=== PATIENT | female | born 1985 | race Caucasian/White ===

== ENCOUNTER 2017-10-16 13:11 | Emergency (ER) | payer MEDICAID ==
[~2017-10-16] VITALS: Ht 165.1 cm; Wt 57.0 kg
[~2017-10-16 13:11] MED LIST: NO HOME MEDS
[2017-10-16] MEDS ORDERED: vancomycin/NS 1 GM ADD-VANTAGE 250 ML IV ONE (14:00)
[2017-10-16] MEDS ORDERED: piperacillin/tazo 3.375gm/50ml 50 ML IV ONE (14:00)
[2017-10-16] MEDS ORDERED: normal saline 1000ML IV soln IV ONE (14:00)
[2017-10-16 14:53] LABS: BASOPHILS % (AUTO) 0.5 % (0-1); EOSINOPHILS # (AUTO) 0.3 X10'3 (0-0.9); EOSINOPHILS % (AUTO) 4.1 % (0-6); HEMATOCRIT 28.1 % (35.0-45.0); HEMOGLOBIN 9.3 g/dl (12.0-16.0); LYMPHOCYTES # (AUTO) 2.1 X10'3 (1.1-4.8); LYMPHOCYTES % (AUTO) 25.9 % (21-51); MEAN CORPUSCULAR HEMOGLOBIN 26.1 PG (27.0-31.0); MEAN CORPUSCULAR HGB CONC 32.9 % (33.0-36.5); MEAN CORPUSCULAR VOLUME 79.2 FL (78-98); MEAN PLATELET VOLUME 8.4 FL (7.4-10.4); MONOCYTES # (AUTO) 0.6 X10'3 (0-0.9); MONOCYTES % (AUTO) 7.8 % (2-12); NEUTROPHILS % (AUTO) 61.7 % (42-75); PLATELET COUNT 311 X10'3 (140-440); RED BLOOD COUNT 3.55 X10'6 (4.20-5.60); RED CELL DISTRIBUTION WIDTH 15.6 % (11.5-14.5); WHITE BLOOD COUNT 8.1 X10'3 (4.5-11.0)
[2017-10-16 14:58] LABS: ALANINE AMINOTRANSFERASE 39 U/L (12-78); ALBUMIN 2.5 G/DL (3.4-5.0); ALBUMIN/GLOBULIN RATIO 0.6 (1.1-1.5); ALKALINE PHOSPHATASE 71 IU/L (46-116); ANION GAP 9 (8-16); ASPARTATE AMINO TRANSFERASE 30 U/L (10-37); BILIRUBIN,TOTAL 0.2 MG/DL (0.1-1.0); BLOOD UREA NITROGEN 10 MG/DL (7-18); BUN/CREATININE RATIO 14.3 (6.6-38.0); CALCIUM 7.4 MG/DL (8.5-10.1); CHLORIDE 105 MMOL/L (99-107); ETHANOL < 0.010 GM/DL (0.0-0.010); MAGNESIUM 1.8 MG/DL (1.5-2.4); POTASSIUM 3.3 MMOL/L (3.5-5.1); SODIUM 141 MMOL/L (135-145); TOTAL CARBON DIOXIDE 27.5 MMOL/L (24-32); TOTAL PROTEIN 6.5 G/DL (6.4-8.2); eGFR > 90 ML/MIN
[2017-10-16 14:59] LABS: GLUCOSE 81 MG/DL (70-104)
[2017-10-16 15:00] LABS: URINE HCG NEGATIVE (NEG)
[2017-10-16] MEDS ORDERED: iohexol 300mg/ml 100ml inj. ONE (15:04)
[2017-10-16 15:06] LABS: CLARITY,URINE CLOUDY (Clear); COLOR,URINE YELLOW (Yellow); GLUCOSE, URINE NEGATIVE (Neg); KETONES,URINE NEGATIVE (Neg); LEUKOCYTE ESTERASE ,URINE SMALL (Neg); NITRITES, URINE POSITIVE (Neg); OCCULT BLOOD,URINE NEGATIVE (Neg); PROTEIN,URINE TRACE mg/dl (Neg); UA COLLECTION TYPE CLN CATCH MIDSTREAM; UROBILINOGEN,URINE 0.2 E.U/dL (0.2-1.0)
[2017-10-16 15:15] LABS: URINE AMPHETAMINE SCREEN POSITIVE (Neg); URINE BARBITUATE SCREEN NEGATIVE (Neg); URINE BENZODIAZEPINES SCREEN NEGATIVE (Neg); URINE CANNABINOID SCREEN NEGATIVE (Neg); URINE COCAINE SCREEN NEGATIVE (Neg); URINE METHADONE SCREEN NEGATIVE (Neg); URINE OPIATE SCREEN POSITIVE (Neg); URINE PHENCYCLIDINE SCREEN NEGATIVE (Neg)
[2017-10-16 15:17] LABS: BACTERIA,URINE 4+ /HPF (Neg); MUCUS STRANDS MANY /LPF (Neg); RBC,URINE 0-2 /HPF (0-2); SQUAMOUS EPITHELIAL CELL,UR FEW /LPF (FEW)
[2017-10-16 21:29] VITALS: BP 114/56
== END 2017-10-16 18:49 | disposition short-term general hospital (02) ==
LOC: ER 13:12
DX: S06.0X0A Concussion without loss of consciousness, initial encounter (principal); S05.12XA Contusion of eyeball and orbital tissues, left eye, initial encounter; F15.10 Other stimulant abuse, uncomplicated; N39.0 Urinary tract infection, site not specified; D64.9 Anemia, unspecified; G89.29 Other chronic pain; F11.90 Opioid use, unspecified, uncomplicated; Z56.0 Unemployment, unspecified; W22.8XXA Striking against or struck by other objects, initial encounter; Y93.89 Activity, other specified; Y92.89 Other specified places as the place of occurrence of the external cause; Y99.8 Other external cause status
CPT/HCPCS: 36415; 70450; 80053; 80305; 80320; 81001; 81025; 83605; 83735; 84145; 85025; 87040; 87088; 96365; 96366; 96367; 99285; J2543; J3370; J7030; Q9967; 87077; 87186

== ENCOUNTER 2018-03-21 20:03 | Emergency (ER) | payer MEDICAID ==
[~2018-03-21] VITALS: Ht 165.1 cm; Wt 56.0 kg
[2018-03-21 20:33] LABS: BASOPHILS % (AUTO) 0.4 % (0-1); EOSINOPHILS # (AUTO) 0.4 X10'3 (0-0.9); EOSINOPHILS % (AUTO) 6.8 % (0-6); HEMATOCRIT 34.2 % (35.0-45.0); HEMOGLOBIN 11.1 g/dl (12.0-16.0); LYMPHOCYTES # (AUTO) 2.2 X10'3 (1.1-4.8); LYMPHOCYTES % (AUTO) 34.5 % (21-51); MEAN CORPUSCULAR HEMOGLOBIN 25.7 PG (27.0-31.0); MEAN CORPUSCULAR HGB CONC 32.4 % (33.0-36.5); MEAN CORPUSCULAR VOLUME 79.2 FL (78-98); MEAN PLATELET VOLUME 8.5 FL (7.4-10.4); MONOCYTES # (AUTO) 0.4 X10'3 (0-0.9); MONOCYTES % (AUTO) 5.8 % (2-12); NEUTROPHILS # (AUTO) 3.3 X10'3 (1.8-7.7); NEUTROPHILS % (AUTO) 52.5 % (42-75); PLATELET COUNT 259 X10'3 (140-440); RED BLOOD COUNT 4.32 X10'6 (4.20-5.60); WHITE BLOOD COUNT 6.3 X10'3 (4.5-11.0)
[2018-03-21 20:47] LABS: ALANINE AMINOTRANSFERASE 57 U/L (12-78); ALBUMIN 3.5 G/DL (3.4-5.0); ALBUMIN/GLOBULIN RATIO 0.8 (1.1-1.5); ALKALINE PHOSPHATASE 102 IU/L (46-116); ANION GAP 5 (8-16); ASPARTATE AMINO TRANSFERASE 39 U/L (10-37); BILIRUBIN,TOTAL 0.3 MG/DL (0.1-1.0); BLOOD UREA NITROGEN 12 MG/DL (7-18); CALCIUM 9.4 MG/DL (8.5-10.1); CHLORIDE 100 MMOL/L (99-107); CREATININE 0.86 MG/DL (0.40-0.90); POTASSIUM 4.2 MMOL/L (3.5-5.1); SODIUM 140 MMOL/L (135-145); TOTAL CARBON DIOXIDE 35.1 MMOL/L (24-32); eGFR 76 ML/MIN
[2018-03-21 20:55] LABS: GLUCOSE 85 MG/DL (70-104)
[2018-03-21 21:32] LABS: CLARITY,URINE SLIGHTLY CLOUDY (Clear); COLOR,URINE YELLOW (Yellow); GLUCOSE, URINE NEGATIVE (Neg); KETONES,URINE NEGATIVE (Neg); LEUKOCYTE ESTERASE ,URINE SMALL (Neg); NITRITES, URINE NEGATIVE (Neg); OCCULT BLOOD,URINE NEGATIVE (Neg); PH,URINE 7.5 (4.8-8.0); PROTEIN,URINE TRACE mg/dl (Neg); UROBILINOGEN,URINE 0.2 E.U/dL (0.2-1.0)
[2018-03-21 21:32] LABS: INR 0.9 INR; PROTHROMBIN TIME 9.5 SECONDS (9.0-12.0)
[2018-03-21 21:34] LABS: URINE HCG NEGATIVE (NEG)
[2018-03-21 21:41] LABS: UA COLLECTION TYPE CLN CATCH MIDSTREAM
[2018-03-21 21:42] LABS: BACTERIA,URINE 2+ /HPF (Neg); RBC,URINE 0-2 /HPF (0-2); SQUAMOUS EPITHELIAL CELL,UR MODERATE /LPF (FEW); WBC,URINE 30-50 /HPF (0-4)
[2018-03-21] MEDS ORDERED: CEPH500C5 PO (21:49)
[2018-03-21] MEDS ORDERED: cephalexin 250mg capsule PO ONE (21:50)
[2018-03-21 22:09] VITALS: BP 139/91
== END 2018-03-21 22:12 | disposition home or self-care (01) ==
LOC: ER 20:03
DX: N39.0 Urinary tract infection, site not specified (principal); R11.10 Vomiting, unspecified; F11.20 Opioid dependence, uncomplicated; R10.84 Generalized abdominal pain; G89.29 Other chronic pain; F15.90 Other stimulant use, unspecified, uncomplicated; M79.7 Fibromyalgia; Z56.0 Unemployment, unspecified; Z98.890 Other specified postprocedural states
CPT/HCPCS: 36415; 80053; 81001; 81025; 85025; 85610; 87077; 87088; 87186; 99283

== ENCOUNTER 2018-04-23 13:10 | Emergency (ER) | payer MEDICAID, OTHER ==
[~2018-04-23] VITALS: Ht 165.1 cm; Wt 54.5 kg
[~2018-04-23 13:10] MED LIST changes: +CEPH500C5 PO
[2018-04-23 13:45] VITALS: BP 122/95
[2018-04-23] MEDS ORDERED: CEPH-572 PO (15:46)
[2018-04-23] MEDS ORDERED: SULF1TAB49 PO (15:46)
== END 2018-04-23 16:00 | disposition home or self-care (01) ==
LOC: ER 13:10
DX: L03.114 Cellulitis of left upper limb (principal); G89.29 Other chronic pain; M79.7 Fibromyalgia; F17.200 Nicotine dependence, unspecified, uncomplicated; F15.10 Other stimulant abuse, uncomplicated; F11.10 Opioid abuse, uncomplicated; Z56.0 Unemployment, unspecified; Z79.899 Other long term (current) drug therapy
CPT/HCPCS: 99284

== ENCOUNTER 2018-04-23 20:21 | Emergency (ER) | payer OTHER ==
[~2018-04-23 20:21] MED LIST changes: +CEPH-572 PO; +SULF1TAB49 PO
== END 2018-04-23 21:21 | disposition left against medical advice (07) ==
LOC: ER 20:21
DX: R21 Rash and other nonspecific skin eruption (principal); Z53.21 Procedure and treatment not carried out due to patient leaving prior to being seen by health care provider

== ENCOUNTER 2019-03-08 13:48 | Emergency (ER) | payer MEDICAID, OTHER ==
[~2019-03-08] VITALS: Ht 165.1 cm; Wt 56.0 kg
[~2019-03-08 13:48] MED LIST changes: -CEPH-572 PO; -SULF1TAB49 PO
[2019-03-08 13:49] VITALS: BP 129/73
[2019-03-08] MEDS ORDERED: IBUP-1984 PO (15:57)
[2019-03-08] MEDS ORDERED: BACDS PO (15:57)
== END 2019-03-08 16:07 | disposition home or self-care (01) ==
LOC: ER 13:49
DX: L03.113 Cellulitis of right upper limb (principal); G89.29 Other chronic pain; M79.7 Fibromyalgia; F15.90 Other stimulant use, unspecified, uncomplicated; F11.90 Opioid use, unspecified, uncomplicated; Z79.2 Long term (current) use of antibiotics; Z79.1 Long term (current) use of non-steroidal anti-inflammatories (NSAID); Z98.890 Other specified postprocedural states; Z56.0 Unemployment, unspecified
CPT/HCPCS: 99283

== ENCOUNTER 2021-02-13 06:02 | Emergency (ER) | payer MEDICAID ==
[~2021-02-13] VITALS: Ht 165.1 cm; Wt 61.0 kg
[~2021-02-13 06:02] MED LIST changes: -CEPH500C5 PO
[2021-02-13 06:18] VITALS: BP 101/66
[2021-02-13 07:39] LABS: URINE HCG NEGATIVE (NEG)
[2021-02-13 07:55] LABS: CLARITY,URINE CLOUDY (Clear); COLOR,URINE YELLOW (Yellow); GLUCOSE, URINE NEGATIVE (Neg); KETONES,URINE NEGATIVE (Neg); OCCULT BLOOD,URINE MODERATE (Neg); PH,URINE 7.5 (4.8-8.0); PROTEIN,URINE NEGATIVE (Neg); UA COLLECTION TYPE OTHER
[2021-02-13 07:56] LABS: LEUKOCYTE ESTERASE ,URINE SMALL (Neg); NITRITES, URINE NEGATIVE (Neg); UROBILINOGEN,URINE 0.2 E.U/dL (0.2-1.0)
[2021-02-13 08:16] LABS: BACTERIA,URINE 4+ /HPF (Neg); SQUAMOUS EPITHELIAL CELL,UR MANY /LPF (FEW)
[2021-02-13 08:17] LABS: TRICHOMONAS,URINE MANY /HPF (NEGATIVE)
[2021-02-13 08:18] LABS: RBC,URINE 0-2 /HPF (0-2)
--- NOTE | 2021-02-13 08:19 | NUR ---
PT DIFFICULT IV START, 2 ATTEMPTS AND WITHOUT LABS OR IV. REPORTED TO FRENCH DRAWER WHOM WILL ATTEMPT AND WILL INFORM MD.
--- NOTE | 2021-02-13 08:30 | NUR ---
UPDATED ON PT IV ACCESS STATUS, VO TO HAVE PICC RN PAGED FOR ULTRASOUND IV PLACEMENT.
[2021-02-13 08:48] LABS: BASOPHILS % (AUTO) 0.3 % (0-1); EOSINOPHILS # (AUTO) 0.1 X10'3 (0-0.9); EOSINOPHILS % (AUTO) 1.1 % (0-6); HEMOGLOBIN 11.2 g/dl (12.0-16.0); LYMPHOCYTES # (AUTO) 1.7 X10'3 (1.1-4.8); LYMPHOCYTES % (AUTO) 22.7 % (21-51); MEAN CORPUSCULAR HEMOGLOBIN 25.3 PG (27.0-31.0); MEAN CORPUSCULAR HGB CONC 33.1 g/dL (33.0-36.5); MEAN CORPUSCULAR VOLUME 76.6 FL (78-98); MEAN PLATELET VOLUME 8.2 FL (7.4-10.4); MONOCYTES # (AUTO) 0.3 X10'3 (0-0.9); MONOCYTES % (AUTO) 4.1 % (2-12); NEUTROPHILS # (AUTO) 5.2 X10'3 (1.8-7.7); NEUTROPHILS % (AUTO) 71.8 % (42-75); PLATELET COUNT 331 X10'3 (140-440); RED BLOOD COUNT 4.44 X10'6 (4.20-5.60); RED CELL DISTRIBUTION WIDTH 14.5 % (11.5-14.5); WHITE BLOOD COUNT 7.3 X10'3 (4.5-11.0)
[2021-02-13 08:59] LABS: D-DIMER 2.79 MG/L FEU (0-0.50)
[2021-02-13 09:06] LABS: ALANINE AMINOTRANSFERASE 30 U/L (12-78); ALBUMIN 3.1 G/DL (3.4-5.0); ALBUMIN/GLOBULIN RATIO 0.5 (1.1-1.5); ALKALINE PHOSPHATASE 97 IU/L (46-116); ANION GAP 10 (8-16); ASPARTATE AMINO TRANSFERASE 23 U/L (10-37); BILIRUBIN,TOTAL 0.4 MG/DL (0.1-1.0); BLOOD UREA NITROGEN 10 MG/DL (7-18); BUN/CREATININE RATIO 12.3 (6.6-38.0); C-REACTIVE PROTEIN 4.36 MG/DL (0.0-0.5); CALCIUM 9.5 MG/DL (8.5-10.1); CHLORIDE 104 MMOL/L (99-107); CREATININE 0.81 MG/DL (0.40-0.90); MAGNESIUM 2.4 MG/DL (1.5-2.4); POTASSIUM 4.2 MMOL/L (3.5-5.1); SODIUM 139 MMOL/L (135-145); TOTAL CARBON DIOXIDE 25.5 MMOL/L (24-32); TOTAL PROTEIN 9.2 G/DL (6.4-8.2); eGFR 80 ML/MIN
[2021-02-13 09:10] LABS: GLUCOSE 104 MG/DL (70-104)
[2021-02-13] MEDS ORDERED: CefTRIAXone 250MG inj IM ONE (10:20)
[2021-02-13] MEDS ORDERED: DOXY-411 PO (10:22)
[2021-02-13] MEDS ORDERED: DOXYCYCLINE 100MG CAPSULE PO STA (10:22)
[2021-02-13] MEDS ORDERED: naproxen 500mg tablet PO ONE (10:25)
[2021-02-13] MEDS ORDERED: CefTRIAXone 1000mg IM Kit (w/lidocaine diluent) IM ONE (10:25)
== END 2021-02-13 10:53 | disposition left against medical advice (07) ==
LOC: ER 06:02
DX: N10 Acute pyelonephritis (principal); F15.10 Other stimulant abuse, uncomplicated; R01.1 Cardiac murmur, unspecified
CPT/HCPCS: 36415; 71045; 80053; 81001; 81025; 83605; 83735; 84145; 85025; 85379; 85651; 86140; 87040; 96372; 99284; J0696

== ENCOUNTER 2021-03-30 13:59 | Inpatient (IN) | payer MEDICAID ==
[~2021-03-30] VITALS: Ht 165.1 cm; Wt 57.7 kg
[2021-03-30 14:41] LABS: URINE HCG NEGATIVE (NEG)
[2021-03-30 14:43] LABS: BASOPHILS % (AUTO) 0.2 % (0-1); EOSINOPHILS % (AUTO) 0.1 % (0-6); HEMATOCRIT 34.1 % (35.0-45.0); LYMPHOCYTES # (AUTO) 1.4 X10'3 (1.1-4.8); LYMPHOCYTES % (AUTO) 8.5 % (21-51); MEAN CORPUSCULAR HEMOGLOBIN 23.9 PG (27.0-31.0); MEAN CORPUSCULAR HGB CONC 32.1 g/dL (33.0-36.5); MEAN CORPUSCULAR VOLUME 74.4 FL (78-98); MEAN PLATELET VOLUME 8.3 FL (7.4-10.4); MONOCYTES # (AUTO) 1.4 X10'3 (0-0.9); MONOCYTES % (AUTO) 8.3 % (2-12); NEUTROPHILS # (AUTO) 13.9 X10'3 (1.8-7.7); NEUTROPHILS % (AUTO) 82.9 % (42-75); PLATELET COUNT 292 X10'3 (140-440); RED BLOOD COUNT 4.59 X10'6 (4.20-5.60); RED CELL DISTRIBUTION WIDTH 14.7 % (11.5-14.5); WHITE BLOOD COUNT 16.7 X10'3 (4.5-11.0)
[2021-03-30 14:44] LABS: CLARITY,URINE CLOUDY (Clear); COLOR,URINE YELLOW (Yellow); GLUCOSE, URINE NEGATIVE (Neg); KETONES,URINE TRACE mg/dl (Neg); LEUKOCYTE ESTERASE ,URINE LARGE (Neg); NITRITES, URINE NEGATIVE (Neg); OCCULT BLOOD,URINE SMALL (Neg); PROTEIN,URINE 100 mg/dl (Neg)
[2021-03-30 14:45] LABS: UA COLLECTION TYPE CLN CATCH MIDSTREAM
[2021-03-30 14:54] LABS: ALANINE AMINOTRANSFERASE 30 U/L (12-78); ALBUMIN 3.2 G/DL (3.4-5.0); ALBUMIN/GLOBULIN RATIO 0.5 (1.1-1.5); ALKALINE PHOSPHATASE 130 IU/L (46-116); ANION GAP 12 (8-16); ASPARTATE AMINO TRANSFERASE 25 U/L (10-37); BILIRUBIN,TOTAL 0.6 MG/DL (0.1-1.0); BLOOD UREA NITROGEN 13 MG/DL (7-18); BUN/CREATININE RATIO 12.3 (6.6-38.0); CALCIUM 9.5 MG/DL (8.5-10.1); CHLORIDE 97 MMOL/L (99-107); CREATININE 1.06 MG/DL (0.40-0.90); GLUCOSE 108 MG/DL (70-104); LIPASE < 50 U/L (73-393); POTASSIUM 4.6 MMOL/L (3.5-5.1); SODIUM 137 MMOL/L (135-145); TOTAL CARBON DIOXIDE 27.6 MMOL/L (24-32); TOTAL PROTEIN 9.6 G/DL (6.4-8.2); eGFR 59 ML/MIN
[2021-03-30 15:08] LABS: BACTERIA,URINE 4+ /HPF (Neg); SQUAMOUS EPITHELIAL CELL,UR MANY /LPF (FEW); WBC,URINE TNTC /HPF (0-4)
[2021-03-30 15:09] LABS: RBC,URINE 0-2 /HPF (0-2); WBC CLUMPS,URINE MANY /HPF (NEGATIVE)
[2021-03-30 15:14] LABS: TRICHOMONAS,URINE FEW /HPF (NEGATIVE)
[2021-03-30] MEDS ORDERED: normal saline 1000ML IV soln IVB ONE (16:30)
[2021-03-30] MEDS ORDERED: ondansetron/PF 4mg/2ml inj IV ONE (16:30)
[2021-03-30] MEDS ORDERED: ketorolac trometh. 30mg/ml inj. IV ONE (16:30)
[2021-03-30] MEDS ORDERED: CefTRIAXone 2gm/D5W 50ml BAG 50 ML IV ONE (16:35)
[2021-03-30] MEDS ORDERED: iohexol 300mg/ml 100ml inj. ONE (16:43)
[2021-03-30 20:19] LABS: URINE BARBITUATE SCREEN NEGATIVE (Neg); URINE BENZODIAZEPINES SCREEN NEGATIVE (Neg); URINE METHADONE SCREEN NEGATIVE (Neg)
[2021-03-30] MEDS ORDERED: morphine 4 MG/ML inj SYRINge IV ONE (20:20)
[2021-03-30 20:42] LABS: URINE AMPHETAMINE SCREEN POSITIVE (Neg); URINE CANNABINOID SCREEN NEGATIVE (Neg); URINE COCAINE SCREEN NEGATIVE (Neg); URINE OPIATE SCREEN POSITIVE (Neg); URINE PHENCYCLIDINE SCREEN NEGATIVE (Neg)
[2021-03-30] MEDS ORDERED: vancomycin/NS 1 GM ADD-VANTAGE 250 ML IV ONE (20:50)
[2021-03-30] MEDS ORDERED: normal saline 1000ML IV soln IV ONE (20:50)
[2021-03-30] MEDS ORDERED: temazepam 15mg capsule PO PRN (21:00)
[2021-03-30] MEDS ORDERED: magnesium 4gm in 100ml NS 100 ML IV PRN (21:10)
[2021-03-30] MEDS ORDERED: magnesium Cl slow-release 64mg tablet PO PRN (21:10)
[2021-03-30] MEDS ORDERED: magnesium 2GM in 50ml NS 50 ML IV PRN (21:10)
[2021-03-30] MEDS ORDERED: ondansetron/PF 4mg/2ml inj IV PRN (21:10)
[2021-03-30] MEDS ORDERED: potassium Cl 20 mEq SR tablet PO PRN ×2 (21:10)
[2021-03-30] MEDS: normal saline 1000ml 1,000 ML IV SCH (21:10)
[2021-03-30] MEDS ORDERED: potassium CL 10mEq/100ml bag 100 ML IV PRN (21:10)
[2021-03-30] MEDS ORDERED: acetaminophen 325mg tablet PO PRN (21:10)
[2021-03-30 22:57] LABS: MAGNESIUM 2.1 MG/DL (1.5-2.4); POTASSIUM 3.8 MMOL/L (3.5-5.1)
[2021-03-31] MEDS: morphine 2 MG/ML inj. syringe IV PRN ×4 (00:06→19:30)
[2021-03-31 00:42] LABS: ALBUMIN 2.1 G/DL (3.4-5.0); ANION GAP 5 (8-16); BLOOD UREA NITROGEN 18 MG/DL (7-18); BUN/CREATININE RATIO 18.9 (6.6-38.0); CALCIUM 7.8 MG/DL (8.5-10.1); CHLORIDE 103 MMOL/L (99-107); CREATININE 0.95 MG/DL (0.40-0.90); MAGNESIUM 1.7 MG/DL (1.5-2.4); POTASSIUM 3.9 MMOL/L (3.5-5.1); SODIUM 137 MMOL/L (135-145); TOTAL CARBON DIOXIDE 28.8 MMOL/L (24-32); eGFR 67 ML/MIN
[2021-03-31 00:43] LABS: GLUCOSE 107 MG/DL (70-104)
[2021-03-31 01:21] LABS: BASOPHILS % (AUTO) 0.3 % (0-1); EOSINOPHILS # (AUTO) 0.1 X10'3 (0-0.9); EOSINOPHILS % (AUTO) 0.9 % (0-6); HEMATOCRIT 25.8 % (35.0-45.0); HEMOGLOBIN 8.5 g/dl (12.0-16.0); LYMPHOCYTES # (AUTO) 1.1 X10'3 (1.1-4.8); LYMPHOCYTES % (AUTO) 10.9 % (21-51); MEAN CORPUSCULAR HEMOGLOBIN 24.5 PG (27.0-31.0); MEAN CORPUSCULAR HGB CONC 32.8 g/dL (33.0-36.5); MEAN CORPUSCULAR VOLUME 74.6 FL (78-98); MEAN PLATELET VOLUME 8.6 FL (7.4-10.4); MONOCYTES % (AUTO) 9.5 % (2-12); NEUTROPHILS % (AUTO) 78.4 % (42-75); PLATELET COUNT 171 X10'3 (140-440); RED BLOOD COUNT 3.46 X10'6 (4.20-5.60); RED CELL DISTRIBUTION WIDTH 14.8 % (11.5-14.5); WHITE BLOOD COUNT 10.2 X10'3 (4.5-11.0)
[2021-03-31 02:30] VITALS: BP 98/46
--- NOTE | 2021-03-31 02:30 | NUR ---
Charge MASOUD Mascorro got report on this patient. Came up on the floor 0230.
[2021-03-31] MEDS: HYDROcodone/acetaminophen 5mg/325mg tablet PO PRN (03:44)
[2021-03-31 06:00] VITALS: BP 101/51
--- NOTE | 2021-03-31 06:40 | NUR ---
Problems reprioritized. Patient report given, questions answered & plan of care reviewed with MASOUD Gan.
[2021-03-31] MEDS: normal saline 1000ml 1,000 ML IV SCH ×3 (07:57→19:36)
[2021-03-31] MEDS: K and/or MAG REPLACEMENT MC SCH ×2 (07:57→19:20)
[2021-03-31] MEDS: vancomycin/NS 1 GM ADD-VANTAGE 250 ML IV SCH ×2 (08:05→22:54)
[2021-03-31 11:00] VITALS: BP 111/68
[2021-03-31 15:00] VITALS: BP 131/77
[2021-03-31] MEDS: CefTRIAXone/D5W-Rocephin 1gm 50 ML IV SCH (16:00)
[2021-03-31 18:00] VITALS: BP 108/69
[2021-03-31] MEDS: lactobacillus rhamnosus 10,000 MMU CELLS/CAPSULE PO SCH (19:31)
[2021-03-31 22:00] VITALS: BP 127/81
[2021-04-01 02:00] VITALS: BP 107/61
--- NOTE | 2021-04-01 06:27 | NUR ---
Patient in room PCU 3020. I have received report from MASOUD Ivory and had the opportunity to ask questions and assume patient care.
[2021-04-01 06:44] VITALS: BP 106/69
[2021-04-01] MEDS: morphine 2 MG/ML inj. syringe IV PRN ×3 (06:50→16:54)
[2021-04-01] MEDS: K and/or MAG REPLACEMENT MC SCH (08:00)
[2021-04-01] MEDS ORDERED: VANCOMYCIN LEVEL IV ONE ×2 (08:30→20:30)
[2021-04-01] MEDS: vancomycin/NS 1 GM ADD-VANTAGE 250 ML IV SCH (08:58)
[2021-04-01] MEDS: lactobacillus rhamnosus 10,000 MMU CELLS/CAPSULE PO SCH (08:58)
[2021-04-01] MEDS: HYDROcodone/acetaminophen 5mg/325mg tablet PO PRN (09:02)
--- NOTE | 2021-04-01 09:39 | NUR ---
PAGER ID: [phone] MESSAGE: [phone]- Ann Gay- tearful and shaking knees. asking about detox. states the 0.5mg morphine q4hr isn't helping and getting "antsy" doesn't think she will be able to stay for long. Thank you- Jennifer [phone].
--- NOTE | 2021-04-01 09:40 | NUR ---
PAGER ID: [phone] MESSAGE: [phone]- Ann Gay- correction she is getting 1mg morphine not 0.5mg.- Jennifer [phone]
--- NOTE | 2021-04-01 09:54 | NUR ---
Lab was unable to draw patient's vanco trough. Vanco trough canceled by pharmacy.
[2021-04-01] MEDS: LORazepam 2 mg/ml vial IV PRN ×2 (10:23→14:12)
[2021-04-01 11:00] VITALS: BP 110/72
[2021-04-01] MEDS ORDERED: PERFLUTREN PROTEIN-A MICROSPHR (Optison) 0.22 MG/ML 3ML VIAL IV ONE (11:15)
[2021-04-01 11:46] LABS: BASOPHILS % (AUTO) 0.2 % (0-1); EOSINOPHILS # (AUTO) 0.2 X10'3 (0-0.9); EOSINOPHILS % (AUTO) 3.4 % (0-6); HEMATOCRIT 28.2 % (35.0-45.0); HEMOGLOBIN 9.1 g/dl (12.0-16.0); LYMPHOCYTES # (AUTO) 1.5 X10'3 (1.1-4.8); LYMPHOCYTES % (AUTO) 25.1 % (21-51); MEAN CORPUSCULAR HEMOGLOBIN 24.3 PG (27.0-31.0); MEAN CORPUSCULAR HGB CONC 32.1 g/dL (33.0-36.5); MEAN CORPUSCULAR VOLUME 75.6 FL (78-98); MEAN PLATELET VOLUME 8.7 FL (7.4-10.4); MONOCYTES # (AUTO) 0.5 X10'3 (0-0.9); MONOCYTES % (AUTO) 8.7 % (2-12); NEUTROPHILS # (AUTO) 3.8 X10'3 (1.8-7.7); NEUTROPHILS % (AUTO) 62.6 % (42-75); PLATELET COUNT 230 X10'3 (140-440); RED BLOOD COUNT 3.73 X10'6 (4.20-5.60)
[2021-04-01 11:47] LABS: ALBUMIN 2.2 G/DL (3.4-5.0); ANION GAP 9 (8-16); BLOOD UREA NITROGEN 10 MG/DL (7-18); BUN/CREATININE RATIO 11.6 (6.6-38.0); CHLORIDE 105 MMOL/L (99-107); CREATININE 0.86 MG/DL (0.40-0.90); MAGNESIUM 1.9 MG/DL (1.5-2.4); POTASSIUM 3.7 MMOL/L (3.5-5.1); SODIUM 140 MMOL/L (135-145); eGFR 75 ML/MIN
[2021-04-01 11:49] LABS: GLUCOSE 98 MG/DL (70-104)
[2021-04-01] MEDS: normal saline 1000ml 1,000 ML IV SCH (13:10)
--- NOTE | 2021-04-01 13:12 | NUR ---
Patient down to MRI
[2021-04-01 15:51] VITALS: BP 112/75
[2021-04-01] MEDS: CefTRIAXone/D5W-Rocephin 1gm 50 ML IV SCH (16:10)
--- NOTE | 2021-04-01 18:40 | NUR ---
Patient in room PCU 3020. I have received report from MASOUD Rodriguez and had the opportunity to ask questions and assume patient care. Addendum: 04/01/21 at 1935 by Janelle Tang RN Amended: Links added.
--- NOTE | 2021-04-01 18:41 | NUR ---
Problems reprioritized. Patient report given, questions answered & plan of care reviewed with MASOUD Rice.
[2021-04-01 18:42] VITALS: BP 130/84
--- NOTE | 2021-04-01 19:20 | NUR ---
Pt is off telemetry, not in room. Addendum: 04/01/21 at 2000 by Janelle Tang RN Amended: Links added.
[2021-04-01] MEDS ORDERED: GADOTERATE MEGLUMINE 7.5 MMOL/15 ML VIAL IV ONE (19:31)
--- NOTE | 2021-04-01 19:55 | NUR ---
1039 to 1954: Staff unable to locate patient in hospital. wood finisher notified, staff found pt sitting fully dressed at bus stop in front of ER. Talked with pt she is alert and oriented, states she is going home to get her car, states has a ride home. Explained to pt she still has an iv in her are, and is needing abx d/t diagnosis of sepsis. Pt pulled her iv out and handed to nurse. cannula intact. no bleeding in arm. 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 she is steady on her feet, states she will come back after she gets her car. Pt states she was arguing with boyfriend on phone and she does not want him to have her car. she states she called a friend and does not want any other assistance, attempted to walk pt back to hospital, but turned around and started walking back to bus stop. Security came out and spoke with her. [address] De was notified at 1954 pt left karon, gavin, tele sr. Addendum: 04/01/21 at 2007 by Janelle Tang RN Amended: Links added. Addendum: 04/02/21 at 0405 by Janelle Tang RN 1840 to 1954 not 1040
== END 2021-04-01 22:00 | disposition left against medical advice (07) | DRG 720 ==
LOC: ER 14:00 → ED HOLD 21:09 → PCU 3S 03-31 02:30
PROVIDERS: ADMIT Internal Medicine; ATTEND Family Medicine
DX: A41.9 Sepsis, unspecified organism (principal); D63.8 Anemia in other chronic diseases classified elsewhere; M46.24 Osteomyelitis of vertebra, thoracic region; F11.10 Opioid abuse, uncomplicated; F17.200 Nicotine dependence, unspecified, uncomplicated; M46.40 Discitis, unspecified, site unspecified; G89.29 Other chronic pain; M79.7 Fibromyalgia; N39.0 Urinary tract infection, site not specified; Z53.29 Procedure and treatment not carried out because of patient's decision for other reasons; Z85.41 Personal history of malignant neoplasm of cervix uteri; Z56.0 Unemployment, unspecified; Z98.891 History of uterine scar from previous surgery; Z71.51 Drug abuse counseling and surveillance of drug abuser
CPT/HCPCS: 36415; 72149; 72157; 74176; 80048; 80053; 80305; 81001; 81025; 83605; 83690; 83735; 84132; 84145; 85025; 87040; 87081; 99285; A9575; G0378; J0696; J1885; J2060; J2270; J2405; J3370; J7030; Q9967

== ENCOUNTER 2021-07-09 18:43 | Emergency (ER) | payer MEDICAID ==
[~2021-07-09] VITALS: Ht 165.1 cm; Wt 57.7 kg
[2021-07-09 18:51] VITALS: BP 141/85
[2021-07-09] MEDS ORDERED: Cipro HC otic suspension 10ML bottle RIGHT EAR SCH (19:10)
[2021-07-09] MEDS ORDERED: amox tr/potassium clavulanate 875/125mg TAB PO ONE (19:10)
[2021-07-09] MEDS ORDERED: AMOX-117 PO (19:20)
== END 2021-07-09 19:22 | disposition home or self-care (01) ==
LOC: ER 18:44
DX: H60.91 Unspecified otitis externa, right ear (principal); G89.29 Other chronic pain; M54.9 Dorsalgia, unspecified; F15.10 Other stimulant abuse, uncomplicated; Z56.0 Unemployment, unspecified; Z79.899 Other long term (current) drug therapy; F11.10 Opioid abuse, uncomplicated
CPT/HCPCS: 99283

== ENCOUNTER 2022-06-22 12:42 | Emergency (ER) | payer MEDICAID ==
[~2022-06-22] VITALS: Ht 165.1 cm; Wt 58.2 kg
[2022-06-22 13:07] VITALS: BP 127/82
[2022-06-22] MEDS ORDERED: AMOX-580 PO (14:47)
[2022-06-22] MEDS ORDERED: HYDR-3965 PO (14:47)
== END 2022-06-22 14:59 | disposition home or self-care (01) ==
LOC: ER 12:43
DX: K04.7 Periapical abscess without sinus (principal); G89.29 Other chronic pain; M54.9 Dorsalgia, unspecified; F15.10 Other stimulant abuse, uncomplicated; F11.10 Opioid abuse, uncomplicated; Z56.0 Unemployment, unspecified
CPT/HCPCS: 99283